=== PATIENT | male | born 2000 | race Caucasian/White ===

== ENCOUNTER 2021-04-27 13:12 | Emergency (ER) | payer OTHER, SELFPAY ==
[2021-04-27 13:13] VITALS: BP 156/83; PULSE 98; RESP 18; TEMP 36.2; O2SAT 98; BMI 38.0
--- NOTE | 2021-04-27 13:34 | RAD_ITS ---
STUDY: X-RAY - LEFT FOOT CLINICAL: Male, 21 years old. Laceration to the plantar aspect of foot. TECHNIQUE: 3 view(s) of the foot. COMPARISON: None. FINDINGS: Normal talus, calcaneus, and tarsal bones. Normal visualized subtalar, talonavicular, calcaneocuboid, tarsal and tarsometatarsal articulations. Normal metatarsi. Normal metatarsophalangeal joint of the great toe. Normal tibial and fibular sesamoid bones. Normal interphalangeal joint of the great toe. Normal phalanges of the great toe. Normal second through fifth metatarsophalangeal joints. Normal interphalangeal joints and phalanges of the lesser toes. The soft tissue structures are unremarkable. RAD/Foot min 3 Views IMPRESSION: Normal x-ray examination of the foot. Electronically Signed: Amol Lipscomb MD at 14:14 EDT , Service support ,
--- NOTE | 2021-04-27 15:12 | ED.VIS.LOWEX ---
HPI History of Present Illness Chief Complaint: Wound Informant: patient Narrative Narrative: Here with significant other evaluation wound bottom left foot after stepping on the and of a plug 6 AM this morning. Tetanus more than 5 years ago. No anticoagulation medicines. Pain when he weight bears on it. However is able to ambulate he works throughout the day. No allergies to their no medications taken. PFSH PFSH Allergy/AdvReac Type Severity Reaction Status Date / Time No Known Allergies Allergy Verified 04/27/21 13:14 Social History Smoking Status: Never smoker ROS ROS ED Constitutional Constitutional ED: Denies chills, fever(s) or sweats Eyes Eyes: Denies change in vision ENT ENT ED: Denies dysphagia or sore throat Cardiovascular Cardiovascular: Denies chest pain, leg edema, palpitations or racing heartbeat Respiratory/Chest Respiratory/Chest: Denies cough, dyspnea or dyspnea on exertion Gastrointestinal Gastrointestinal: Denies abdominal pain, diarrhea, nausea or vomiting Genitourinary Genitourinary ED: Denies dysuria, hematuria or urinary frequency Musculoskeletal Musculoskeletal: Denies back pain, extremity pain or neck pain Integumentary Reports other Details: Left foot wound ; Denies rash or wounds Neurologic Neurologic: Denies headache(s), paresthesias or weakness EXAM Physical Exam Const Vital Signs: 04/27/21 13:13 Temperature 97.2 F L Temperature Source Temporal Pulse Rate 98 Respiratory Rate 18 Blood Pressure 156/83 H Blood Pressure Mean 107 Pulse Ox 98 Oxygen Delivery Method Room Air Positive well nourished and well developed General Appearance ED: well developed and NAD HEENT Reports moist mucous membranes normocephalic and atraumatic Eyes PERRL, EOMs intact bilaterally and conjunctivae normal General Eye ED: Yes normal appearance of both eyes Neck no lymphadenopathy and supple General: Negative for tenderness Chest Wall Chest: Negative for tenderness Resp normal respiratory effort and normal air movement Effort and Inspection: symmetric chest movement; Negative for respiratory distress Cardio regular rate, regular rhythm and no murmurs Peripheral Pulses: pulses 2+ throughout GI normal to inspection, nondistended, normoactive bowel sounds and non-tender Palpation: Negative for guarding or rebound tenderness present Back/Spine no CVA tenderness and no thoracic nor lumbar tenderness Extremity Extremity Narrative: Left lower extremity foot: Plantar aspect midfoot noted skin avulsion with puncture approximately 2 x 2 cm. There is no active bleeding. No drainage. No bony foot tenderness. General Extremety ED: Negative for edema or tenderness General Extremity: Negative for edema Neuro oriented x3 and no sensory deficits noted Sensorium / Orientation: awake and alert Skin no rashes or lesions noted and no wounds MDM MDM MDM Narrative Medical decision making narrative: Protocol foot x-ray obtained from triage negative for fractures or any radiopaque foreign bodies. Wound care discussed with patient. With skin avulsion, this is superficial, discussed would not benefit from suturing. Dressing bacitracin placed by nursing postop shoe provided for comfort. Patient declined any medications for pain in the ED. He will use Tylenol Motrin at home. All questions were answered. Radiography X-Ray: Read by ED Physician and Read by Radiologist Diagnostic Testing: Radiology Impression Foot X-Ray 04/27/21 13:34 IMPRESSION: Normal x-ray examination of the foot. Electronically Signed: Amol Lipscomb MD at 14:14 EDT , Service support , Discharge Plan Triage Chief Complaint: Wound ED Provider: Yann Perrin Dx/Rx/DC Orders Clinical Impression: Puncture wound of foot, left, Avulsion of skin of left foot Instructions: ED Puncture Wound (Foot), ED Skin Avulsion Primary Care Provider: Care Physician,No Primary Referrals: Nasrin Montenegro MD [STAFF PHYSICIAN] - 1 Week Care Physician,No Primary [Primary Care Provider] - Disposition Disposition: Home, Self Care
[2021-04-27] MEDS: Diphth,Pertuss(Acell),Tet Vac 0.5 ML Vial IM (15:21)
[2021-04-27] MEDS: BACITRACIN 15 GM Tube 1 APPLIC TOPICAL (15:21)
== END 2021-04-27 15:33 | disposition home or self-care (01) ==
PROVIDERS: Emergency Provider Emergency Medicine
DX: S91.332A Puncture wound without foreign body, left foot, initial encounter (principal); W22.09XA Striking against other stationary object, initial encounter; Y93.9 Activity, unspecified; Y92.9 Unspecified place or not applicable; Y99.9 Unspecified external cause status
CPT/HCPCS: 73630; 90471; 90715; 99284; A4216

== ENCOUNTER 2025-07-08 19:19 | Emergency (ER) | payer BC, SELFPAY ==
[2025-07-08 19:21] VITALS: BP 198/108; PULSE 121; RESP 17; TEMP 36.8; O2SAT 100; BMI 39.6
--- NOTE | 2025-07-08 19:29 | EX.ED.DYSGE1 ---
HPI History of Present Illness Chief Complaint: Allergic Reaction Narrative Narrative: 25-year-old male has past medical history of allergic reactions presents with ear swelling with wheezing and tongue swelling. He is relay history that they have seen an vice president tax in the past and he has swelled up on 8 different occasions. He has epinephrine handy and also takes Zyrtec as well. He states that the vice president tax cannot tell him exactly what he may be having a reaction to and that it certain kinds of foods. However, he and his relate history that he has tolerated certain foods before, but when he ate this evening, it happened again. He ate food that he has had numerous times previously. It is unpredictable as to what the actual trigger is. He states that he had eaten and then 20 minutes prior to arrival he noticed that his ear started swelling and felt full on the insides. They were reddened. He started wheezing and may have felt his tongue swelling. He immediately took his famotidine and his Zyrtec, but then additionally took 50 mg of Benadryl. His states that this is the first time that he had wheezing so she became concerned. He did not use his epinephrine. He is starting to feel improved. [facility] Medical History Hives Migraines Home Medications ?Medication ?Instructions ?Recorded ?Last Taken ?Type epinephrine 0.3 mg/0.3 mL 0.3 mg (0.3 mL) IM Q5-15M PRN 03/21/23 Unknown Rx injection, auto-injector anaphylaxis #2 ea Allergy/AdvReac Type Severity Reaction Status Date / Time No Known Allergies Allergy Verified 07/08/25 19:21 Family History Mother Hypertension Hx of blood clots Social History adopted: No household members: none housing: house number of children: 0 current occupational status: employed current occupation: construction current occupational exposures/hazards: Yes pets and animals: Yes pets and animals: dog(s) leisure activities: hunting and fishing history of recent travel: No sexually active: Yes Smoking Status: Never smoker alcohol intake: current details: occasionally on weekends substance use type: does not use diet: other well-balanced diet: daily or most days caffeine: Yes eating out: rarely or never during the past year weight has: increased > 10 lbs what type of physical activity do you participate in: walking and weight training seatbelt use: always do you feel safe at home: Yes ROS ROS ED ROS Narrative Review of systems is positive for ear swelling and redness as well as wheezing, mild tongue swelling. Symptoms are improving after medications. Denies any exacerbating or alleviating factors, happened 20 minutes prior to arrival but shortly after eating. EXAM Physical Exam Narrative Exam Narrative: Afebrile. Vital signs noted, nontoxic-appearing. Cardiovascular examination reveals regular tachycardia, lungs are clear to auscultation bilaterally and he is moving a good amount of air, no tachypnea or accessory muscle use. Ears appear slightly reddened but not edematous or swollen currently. Airway patent, no angioedema. No drooling or trismus. Abdomen soft and nontender. Neurological examination nonfocal, nonlateralizing. Speaking in full sentences. Const Vital Signs: 07/08/25 19:21 07/08/25 19:35 07/08/25 20:20 Temperature 98.2 F Temperature Source Oral Pulse Rate 121 H 116 H 95 Respiratory Rate 17 14 23 H Blood Pressure 198/108 H 177/96 H Blood Pressure Mean 138 123 Pulse Ox 100 94 Oxygen Delivery Method Room Air Room Air 07/08/25 20:54 07/08/25 20:55 Temperature 98.2 F Temperature Source Pulse Rate 96 96 Respiratory Rate 21 H 21 H Blood Pressure 171/92 H 171/92 H Blood Pressure Mean 118 118 Pulse Ox 94 94 Oxygen Delivery Method Room Air MDM MDM MDM Narrative Medical decision making narrative: Differential diagnosis includes but not limited to Food allergy versus anaphylaxis versus asthma exacerbation. I do feel that he probably has some sort of allergic reaction or histamine release from eating. I do not feel that epinephrine is indicated. He will be placed on a classroom monitor as he has severely elevated blood pressure currently. This will be monitored. He has already taken Benadryl and his other antihistamines. He was administered Solu-Medrol 125 mg intravenously, and although his pulse ox is 100% on room air, he states he feels mildly dyspneic so he will be given albuterol aerosolized treatment. Upon repeat examination at approximately 2100, he states his breathing has improved significantly. He feels his tongue is still swollen. I do not see any overt angioedema or protrusion of his tongue however. His airway remains patent. In discussion with the patient and his , he feels well enough to go home. They state that they know when to use his epinephrine pen, and he will continue his antihistamines. He will also continue Benadryl 25 mg every 4-6 hours especially over the next 2 days. Follow-up with his vice president tax. They are comfortable with discharge. History & Record Review Discussion w/independent historian: Patient and Family Discharge Plan Triage Chief Complaint: Allergic Reaction ED Provider: Cleveland Pham Dx/Rx/DC Orders Clinical Impression: Food allergy, Wheezing, Allergic reaction Instructions: ED General Allergic Reactions, ED Anaphylaxis, ED Angioedema, ED Food Allergy Prescriptions: No Action epinephrine 0.3 mg/0.3 mL auto-injector 0.3 mg IM Q5-15M PRN (Reason: anaphylaxis) Qty: 2 1RF Rx Instructions: do not exceed 3 doses per episode Primary Care Provider: Jenny Almaraz NP Referrals: Care Physician,No Primary [Non-Staff, Medical] Activity Restrictions/Additional Instructions: Follow-up with your vice president tax as soon as possible. If you have worsening symptoms, you may need to use your epinephrine pen. Continue your previous antihistamines as directed. Take your antihypertensive medication. Return to the emergency department with increased swelling of tongue, new or worsening symptoms including difficulty breathing. Print Language: Hungarian Disposition Disposition: Home, Self Care
[2025-07-08] MEDS: Albuterol 2.5 MG/3 ML VIAL.NEB. INHALATION (19:34)
[2025-07-08 19:35] VITALS: PULSE 116; RESP 14
[2025-07-08 20:20] VITALS: BP 177/96; PULSE 95; RESP 23; O2SAT 94
[2025-07-08 20:54] VITALS: BP 171/92; PULSE 96; RESP 21; O2SAT 94
[2025-07-08 20:55] VITALS: BP 171/92; PULSE 96; RESP 21; TEMP 36.8; O2SAT 94
== END 2025-07-08 21:09 | disposition home or self-care (01) ==
PROVIDERS: Emergency Provider Emergency Medicine; PCP Nurse Practitioner Primary Care; Visit Provider Emergency Medicine
DX: T78.40XA Allergy, unspecified, initial encounter (principal); X58.XXXA Exposure to other specified factors, initial encounter; R06.2 Wheezing; Z91.018 Allergy to other foods
CPT/HCPCS: 94640; 96374; 99284; A4216